=== PATIENT | female | born 1970 | race Caucasian/White ===

== ENCOUNTER 2023-04-14 21:00 | Inpatient (IN) | payer OTHER ==
[2023-04-14 22:26] VITALS: BMI 20.5
[2023-04-15] MEDS ORDERED: LOPERAMIDE HCL 2 MG CAPSULE PO PRN (03:03)
[2023-04-15] MEDS ORDERED: NALOXONE HCL 0.4 MG/ML VIAL IM PRN (03:03)
[2023-04-15] MEDS ORDERED: POLYETHYLENE GLYCOL (HEALTHYLAX) 3350 17 GM PACKET PO PRN (03:03)
[2023-04-15] MEDS ORDERED: MAGNESIUM HYDROX 2400MG/30ML ORAL SUSPENSION 30 ML CUP PO PRN (03:03)
[2023-04-15] MEDS ORDERED: guaiFENesin 600 MG TABLET.ER (FP) PO PRN (03:03)
[2023-04-15] MEDS ORDERED: IBUPROFEN 600 MG TABLET (FP) PO PRN (03:03)
[2023-04-15] MEDS ORDERED: NALOXONE HCL (KLOXXADO) 8 MG SPRAY NS PRN (03:03)
[2023-04-15] MEDS ORDERED: IBUPROFEN 400 MG TABLET (FP) PO PRN (03:03)
[2023-04-15] MEDS ORDERED: COLLOIDAL OATMEAL 1 BAR EACH TP PRN (03:03)
[2023-04-15] MEDS ORDERED: AMMONIUM LACTATE 12% LOTION 225 GM BOTTLE TP PRN (03:03)
[2023-04-15] MEDS ORDERED: BENZOCAINE/MENTHOL (CHLORASEPTIC ) LOZENGE MM PRN (03:03)
[2023-04-15] MEDS ORDERED: MAG HYDROX/AL HYDROX/SIMETH 30 ML UNIT-DOSE CUP PO PRN (03:03)
[2023-04-15] MEDS ORDERED: BENZONATATE 200 MG CAPSULE PO PRN (03:03)
[2023-04-15] MEDS ORDERED: TUBERCULIN PPD 5 TU/0.1ML SYRINGE (IN PATIENT USE ONLY) ID ONE (05:30)
[2023-04-15] MEDS ORDERED: TUBERCULIN PPD 5 TU/0.1ML VIAL ID ONE (05:31)
[2023-04-15] MEDS: ACETAMINOPHEN 325 MG TABLET (FP) PO PRN ×3 (05:36→16:37)
[2023-04-15] MEDS: hydrOXYzine PAMOATE 25 MG CAPSULE (FP) PO PRN ×2 (05:37→18:32)
[2023-04-15] MEDS: SULFAMETHOXAZOLE/TRIMETHOPRIM 800MG/160MG D.S. TABLET PO SCH ×2 (09:41→21:23)
[2023-04-15] MEDS: PRENATAL VITAMINS W/ FOLIC ACID TABLET (FP) PO SCH (09:41)
[2023-04-15] MEDS: NAPROXEN 500 MG TABLET PO SCH ×2 (09:41→21:23)
[2023-04-15 11:34] LABS: HEMOGLOBIN 9.4 GM/dL (10.7-15.3); MCH 34.5 pg (25.7-33.7); MCHC 33.6 g/dl (32.0-36.0); MEAN CELL VOLUME 102.7 fl (80-96); MEAN PLT VOLUME 7.5 fl (7.5-11.1); PLATELET COUNT 599 10^3/uL (134-434); RBC 2.73 M/mm3 (3.60-5.2); WHITE BLOOD COUNT 5.1 K/mm3 (4.0-10.0)
[2023-04-15 11:35] LABS: PH,URINE 6.5 (5.0-8.0); URINE APPEARANCE CLEAR; URINE BILIRUBIN NEGATIVE (NEGATIVE); URINE COLOR YELLOW; URINE GLUCOSE (UA) NEGATIVE (NEGATIVE); URINE KETONE NEGATIVE (NEGATIVE); URINE LEUK ESTERASE NEGATIVE (NEGATIVE); URINE NITRITE NEGATIVE (NEGATIVE); URINE PROTEIN NEGATIVE (NEGATIVE); URINE UROBILINOGEN 0.2 mg/dL (0.2-1.0)
[2023-04-15 13:06] LABS: SYPHILIS W/ RPR CONF NON-REACTIVE (NONREACTIVE)
[2023-04-15 13:11] LABS: POTASSIUM 4.8 mmol/L (3.5-5.1)
[2023-04-15 13:15] LABS: CALCIUM 9.9 mg/dL (8.5-10.1)
[2023-04-15 13:16] LABS: ALBUMIN 3.4 g/dl (3.4-5.0); BLOOD UREA NITROGEN 21.6 mg/dL (7-18)
[2023-04-15 13:19] LABS: CREATININE 0.8 mg/dL (0.55-1.3)
[2023-04-15 13:21] LABS: BILIRUBIN,TOTAL 0.2 mg/dL (0.2-1); TOT PROT 7.2 g/dl (6.4-8.2)
[2023-04-15 15:55] LABS: HIV INTERPRETATION NEGATIVE (NEGATIVE)
[2023-04-15] MEDS: MELATONIN 5 MG TABLETS PO SCH (21:23)
[2023-04-15] MEDS: THIAMINE HCL 100 MG TABLET (FP) PO SCH (21:23)
[2023-04-16] MEDS: PRENATAL VITAMINS W/ FOLIC ACID TABLET (FP) PO SCH (09:30)
[2023-04-16] MEDS: SULFAMETHOXAZOLE/TRIMETHOPRIM 800MG/160MG D.S. TABLET PO SCH ×2 (09:33→21:53)
[2023-04-16] MEDS: NAPROXEN 500 MG TABLET PO SCH ×2 (09:33→21:52)
[2023-04-16] MEDS: hydrOXYzine PAMOATE 25 MG CAPSULE (FP) PO PRN ×2 (09:34→21:52)
[2023-04-16] MEDS: BUPRENORPHINE/NALOXONE 8 MG/2 MG FILM PACKET SL SCH (12:07)
[2023-04-16] MEDS: ACAMPROSATE CALCIUM 333 MG TABLET.DR PO SCH ×2 (13:52→21:53)
[2023-04-16 15:15] LABS: MAGNESIUM 1.7 mg/dL (1.8-2.4)
[2023-04-16 15:21] LABS: INR 0.97 (0.83-1.09); PROTHROMBIN TIME (PATIENT) 11.3 SEC (9.7-13.0)
[2023-04-16 15:23] LABS: TOTAL IRON BINDING CAPACITY 445 ug/dL (250-450)
[2023-04-16] MEDS: NICOTINE 10 MG CARTRIDGE (INHALER) IH SCH (16:46)
[2023-04-16] MEDS: ACETAMINOPHEN 325 MG TABLET (FP) PO PRN (19:00)
[2023-04-16] MEDS: MELATONIN 5 MG TABLETS PO SCH (21:52)
[2023-04-16] MEDS: THIAMINE HCL 100 MG TABLET (FP) PO SCH (21:52)
[2023-04-17] MEDS: ACETAMINOPHEN 325 MG TABLET (FP) PO PRN ×2 (00:13→03:15)
[2023-04-17] MEDS: hydrOXYzine PAMOATE 25 MG CAPSULE (FP) PO PRN (03:15)
[2023-04-17] MEDS: ACAMPROSATE CALCIUM 333 MG TABLET.DR PO SCH ×3 (07:32→21:15)
[2023-04-17] MEDS: PRENATAL VITAMINS W/ FOLIC ACID TABLET (FP) PO SCH (10:09)
[2023-04-17] MEDS: SULFAMETHOXAZOLE/TRIMETHOPRIM 800MG/160MG D.S. TABLET PO SCH ×2 (10:09→21:14)
[2023-04-17] MEDS: NAPROXEN 500 MG TABLET PO SCH ×2 (10:09→21:14)
[2023-04-17] MEDS: NICOTINE 10 MG CARTRIDGE (INHALER) IH SCH (10:10)
[2023-04-17] MEDS: BUPRENORPHINE/NALOXONE 8 MG/2 MG FILM PACKET SL SCH (10:10)
[2023-04-17] MEDS: SERTRALINE HCL 25 MG TABLET (FP) PO SCH (10:44)
[2023-04-17] MEDS: MAGNESIUM OXIDE 400 MG TABLET (FP) PO SCH (12:47)
[2023-04-17] MEDS: LACTULOSE 20 GM/30 ML UDC (FOR ORAL USE ONLY) PO SCH ×2 (14:31→21:15)
[2023-04-17] MEDS: BUPRENORPHINE/NALOXONE 2 MG/0.5 MG FILM PACKET SL SCH (17:35)
[2023-04-17] MEDS: HYDROCORTISONE 0.5% TOPICAL CREAM 30 GM TUBE TP PRN (19:15)
[2023-04-17] MEDS: BENZOCAINE 20 % GEL TUBE MM PRN (19:18)
[2023-04-17] MEDS: THIAMINE HCL 100 MG TABLET (FP) PO SCH (21:14)
[2023-04-17] MEDS: MELATONIN 5 MG TABLETS PO SCH (21:15)
[2023-04-18] MEDS: hydrOXYzine PAMOATE 25 MG CAPSULE (FP) PO PRN (00:17)
[2023-04-18] MEDS: BENZOCAINE 20 % GEL TUBE MM PRN ×4 (00:18→22:04)
[2023-04-18] MEDS: LACTULOSE 20 GM/30 ML UDC (FOR ORAL USE ONLY) PO SCH ×2 (06:27→13:23)
[2023-04-18] MEDS: ACAMPROSATE CALCIUM 333 MG TABLET.DR PO SCH ×3 (06:28→21:17)
[2023-04-18] MEDS: NAPROXEN 500 MG TABLET PO PRN ×2 (06:31→21:18)
[2023-04-18] MEDS: HYDROCORTISONE 0.5% TOPICAL CREAM 30 GM TUBE TP PRN (07:15)
[2023-04-18] MEDS: MULTIVITAMINS (DAILY MVI) TABLET (FP) PO SCH (09:48)
[2023-04-18] MEDS: MAGNESIUM OXIDE 400 MG TABLET (FP) PO SCH (09:49)
[2023-04-18] MEDS: SERTRALINE HCL 25 MG TABLET (FP) PO SCH (09:49)
[2023-04-18] MEDS: SULFAMETHOXAZOLE/TRIMETHOPRIM 800MG/160MG D.S. TABLET PO SCH ×2 (09:49→21:17)
[2023-04-18] MEDS: CHOLECALCIFEROL (VIT D3) 400 UNIT (10 MCG) TABLET PO SCH (09:49)
[2023-04-18] MEDS: BUPRENORPHINE/NALOXONE 8 MG/2 MG FILM PACKET SL SCH (09:49)
[2023-04-18] MEDS: NICOTINE 10 MG CARTRIDGE (INHALER) IH SCH (09:50)
[2023-04-18] MEDS: BUPRENORPHINE/NALOXONE 2 MG/0.5 MG FILM PACKET SL SCH (17:57)
[2023-04-18] MEDS: NICOTINE POLACRILEX 2 MG GUM BUC PRN (19:01)
[2023-04-18] MEDS: THIAMINE HCL 100 MG TABLET (FP) PO SCH (21:17)
[2023-04-18] MEDS: MELATONIN 5 MG TABLETS PO SCH (21:17)
[2023-04-19] MEDS: ACAMPROSATE CALCIUM 333 MG TABLET.DR PO SCH ×3 (07:14→21:11)
[2023-04-19] MEDS: NICOTINE 10 MG CARTRIDGE (INHALER) IH SCH (09:29)
[2023-04-19] MEDS: SULFAMETHOXAZOLE/TRIMETHOPRIM 800MG/160MG D.S. TABLET PO SCH ×2 (09:29→21:10)
[2023-04-19] MEDS: MAGNESIUM OXIDE 400 MG TABLET (FP) PO SCH (09:30)
[2023-04-19] MEDS: BUPRENORPHINE/NALOXONE 8 MG/2 MG FILM PACKET SL SCH (09:30)
[2023-04-19] MEDS: MULTIVITAMINS (DAILY MVI) TABLET (FP) PO SCH (09:32)
[2023-04-19] MEDS: CHOLECALCIFEROL (VIT D3) 400 UNIT (10 MCG) TABLET PO SCH (09:32)
[2023-04-19] MEDS: SERTRALINE HCL 25 MG TABLET (FP) PO SCH (09:33)
[2023-04-19] MEDS: NAPROXEN 500 MG TABLET PO PRN ×2 (10:42→23:59)
[2023-04-19] MEDS ORDERED: FLU VACC QS2022-23(6MOS UP)/PF 60 MCG/0.5 ML SYRINGE IM ONE (12:00)
[2023-04-19] MEDS ORDERED: PNEUMOC 20-VAL CONJ-DIP CRM/PF 0.5 ML SYRINGE IM ONE (12:00)
[2023-04-19] MEDS: BENZOCAINE 20 % GEL TUBE MM PRN (16:32)
[2023-04-19] MEDS: BUPRENORPHINE/NALOXONE 2 MG/0.5 MG FILM PACKET SL SCH (18:30)
[2023-04-19] MEDS: THIAMINE HCL 100 MG TABLET (FP) PO SCH (21:10)
[2023-04-19] MEDS: MELATONIN 5 MG TABLETS PO SCH (21:10)
[2023-04-19] MEDS: NICOTINE POLACRILEX 2 MG GUM BUC PRN (21:31)
[2023-04-20] MEDS: ACAMPROSATE CALCIUM 333 MG TABLET.DR PO SCH ×3 (07:08→21:19)
[2023-04-20] MEDS: SULFAMETHOXAZOLE/TRIMETHOPRIM 800MG/160MG D.S. TABLET PO SCH ×2 (09:41→21:18)
[2023-04-20] MEDS: BUPRENORPHINE/NALOXONE 8 MG/2 MG FILM PACKET SL SCH (09:41)
[2023-04-20] MEDS: MAGNESIUM OXIDE 400 MG TABLET (FP) PO SCH (09:41)
[2023-04-20] MEDS: MULTIVITAMINS (DAILY MVI) TABLET (FP) PO SCH (09:45)
[2023-04-20] MEDS: SERTRALINE HCL 25 MG TABLET (FP) PO SCH (09:45)
[2023-04-20] MEDS: CHOLECALCIFEROL (VIT D3) 400 UNIT (10 MCG) TABLET PO SCH (09:45)
[2023-04-20] MEDS: NICOTINE 10 MG CARTRIDGE (INHALER) IH SCH (09:49)
[2023-04-20] MEDS: BUPRENORPHINE/NALOXONE 2 MG/0.5 MG FILM PACKET SL SCH (18:27)
[2023-04-20] MEDS: BENZOCAINE 20 % GEL TUBE MM PRN (18:29)
[2023-04-20] MEDS: MELATONIN 5 MG TABLETS PO SCH (21:18)
[2023-04-20] MEDS: THIAMINE HCL 100 MG TABLET (FP) PO SCH (21:18)
[2023-04-20] MEDS: IBUPROFEN 600 MG TABLET (FP) PO PRN (22:48)
[2023-04-21] MEDS: hydrOXYzine PAMOATE 25 MG CAPSULE (FP) PO PRN (06:39)
[2023-04-21] MEDS: IBUPROFEN 600 MG TABLET (FP) PO PRN ×3 (06:39→21:07)
[2023-04-21] MEDS: ACAMPROSATE CALCIUM 333 MG TABLET.DR PO SCH ×3 (06:40→21:08)
[2023-04-21] MEDS: SULFAMETHOXAZOLE/TRIMETHOPRIM 800MG/160MG D.S. TABLET PO SCH ×2 (10:10→21:07)
[2023-04-21] MEDS: MAGNESIUM OXIDE 400 MG TABLET (FP) PO SCH (10:10)
[2023-04-21] MEDS: BUPRENORPHINE/NALOXONE 8 MG/2 MG FILM PACKET SL SCH (10:11)
[2023-04-21] MEDS: NICOTINE 10 MG CARTRIDGE (INHALER) IH SCH (10:11)
[2023-04-21] MEDS: MULTIVITAMINS (DAILY MVI) TABLET (FP) PO SCH (10:11)
[2023-04-21] MEDS: CHOLECALCIFEROL (VIT D3) 400 UNIT (10 MCG) TABLET PO SCH (10:11)
[2023-04-21] MEDS: SERTRALINE HCL 25 MG TABLET (FP) PO SCH (10:12)
[2023-04-21] MEDS: BENZOCAINE 20 % GEL TUBE MM PRN ×3 (10:21→23:31)
[2023-04-21] MEDS: BUPRENORPHINE/NALOXONE 2 MG/0.5 MG FILM PACKET SL SCH (17:06)
[2023-04-21] MEDS: THIAMINE HCL 100 MG TABLET (FP) PO SCH (21:06)
[2023-04-21] MEDS: hydrOXYzine PAMOATE 50 MG CAPSULE (FP) PO PRN (21:07)
[2023-04-21] MEDS: MELATONIN 5 MG TABLETS PO SCH (21:10)
[2023-04-22] MEDS: hydrOXYzine PAMOATE 50 MG CAPSULE (FP) PO PRN ×2 (04:27→19:48)
[2023-04-22] MEDS: IBUPROFEN 600 MG TABLET (FP) PO PRN ×3 (04:27→21:47)
[2023-04-22] MEDS: BENZOCAINE 20 % GEL TUBE MM PRN ×3 (04:32→19:48)
[2023-04-22] MEDS: ACAMPROSATE CALCIUM 333 MG TABLET.DR PO SCH ×3 (06:53→21:45)
[2023-04-22] MEDS: MULTIVITAMINS (DAILY MVI) TABLET (FP) PO SCH (09:34)
[2023-04-22] MEDS: CHOLECALCIFEROL (VIT D3) 400 UNIT (10 MCG) TABLET PO SCH (09:34)
[2023-04-22] MEDS: SERTRALINE HCL 25 MG TABLET (FP) PO SCH (09:34)
[2023-04-22] MEDS: MAGNESIUM OXIDE 400 MG TABLET (FP) PO SCH (09:35)
[2023-04-22] MEDS: BUPRENORPHINE/NALOXONE 8 MG/2 MG FILM PACKET SL SCH (09:35)
[2023-04-22] MEDS: ARIPiprazole 2 MG TABLET PO SCH (09:36)
[2023-04-22] MEDS: NICOTINE 10 MG CARTRIDGE (INHALER) IH SCH (09:37)
[2023-04-22] MEDS: BUPRENORPHINE/NALOXONE 2 MG/0.5 MG FILM PACKET SL SCH (18:47)
[2023-04-22] MEDS: MELATONIN 5 MG TABLETS PO SCH (21:45)
[2023-04-22] MEDS: THIAMINE HCL 100 MG TABLET (FP) PO SCH (21:45)
[2023-04-23] MEDS: ACAMPROSATE CALCIUM 333 MG TABLET.DR PO SCH ×3 (07:05→21:33)
[2023-04-23] MEDS: IBUPROFEN 600 MG TABLET (FP) PO PRN (07:05)
[2023-04-23] MEDS: BENZOCAINE 20 % GEL TUBE MM PRN ×2 (07:56→21:36)
[2023-04-23] MEDS: MULTIVITAMINS (DAILY MVI) TABLET (FP) PO SCH (09:28)
[2023-04-23] MEDS: MAGNESIUM OXIDE 400 MG TABLET (FP) PO SCH (09:29)
[2023-04-23] MEDS: ARIPiprazole 2 MG TABLET PO SCH (09:29)
[2023-04-23] MEDS: CHOLECALCIFEROL (VIT D3) 400 UNIT (10 MCG) TABLET PO SCH (09:29)
[2023-04-23] MEDS: SERTRALINE HCL 25 MG TABLET (FP) PO SCH (09:29)
[2023-04-23] MEDS: BUPRENORPHINE/NALOXONE 8 MG/2 MG FILM PACKET SL SCH (09:30)
[2023-04-23] MEDS: NICOTINE 10 MG CARTRIDGE (INHALER) IH SCH (10:22)
[2023-04-23] MEDS: hydrOXYzine PAMOATE 50 MG CAPSULE (FP) PO PRN (11:12)
[2023-04-23] MEDS: LIDOCAINE 5% TOPICAL PATCH TP SCH (13:50)
[2023-04-23] MEDS: BUPRENORPHINE/NALOXONE 2 MG/0.5 MG FILM PACKET SL SCH (18:09)
[2023-04-23] MEDS: THIAMINE HCL 100 MG TABLET (FP) PO SCH (21:33)
[2023-04-23] MEDS: LIDOCAINE PATCH REMOVAL MC SCH (21:34)
[2023-04-23] MEDS: SUVOREXANT 10 MG TABLET PO PRN (21:35)
[2023-04-24] MEDS: ACAMPROSATE CALCIUM 333 MG TABLET.DR PO SCH ×3 (07:51→21:38)
[2023-04-24] MEDS: LIDOCAINE 5% TOPICAL PATCH TP SCH (09:54)
[2023-04-24] MEDS: MAGNESIUM OXIDE 400 MG TABLET (FP) PO SCH (09:56)
[2023-04-24] MEDS: ARIPiprazole 2 MG TABLET PO SCH (09:56)
[2023-04-24] MEDS: BUPRENORPHINE/NALOXONE 8 MG/2 MG FILM PACKET SL SCH (09:56)
[2023-04-24] MEDS: NICOTINE 10 MG CARTRIDGE (INHALER) IH SCH (09:57)
[2023-04-24] MEDS: CHOLECALCIFEROL (VIT D3) 400 UNIT (10 MCG) TABLET PO SCH (09:58)
[2023-04-24] MEDS: MULTIVITAMINS (DAILY MVI) TABLET (FP) PO SCH (09:58)
[2023-04-24] MEDS: SERTRALINE HCL 25 MG TABLET (FP) PO SCH (09:59)
[2023-04-24] MEDS: IBUPROFEN 600 MG TABLET (FP) PO PRN (10:01)
[2023-04-24] MEDS: BENZOCAINE 20 % GEL TUBE MM PRN ×2 (10:05→21:41)
[2023-04-24] MEDS: BUPRENORPHINE/NALOXONE 2 MG/0.5 MG FILM PACKET SL SCH (18:29)
[2023-04-24] MEDS: THIAMINE HCL 100 MG TABLET (FP) PO SCH (21:37)
[2023-04-24] MEDS: SUVOREXANT 10 MG TABLET PO PRN (21:37)
[2023-04-24] MEDS: LIDOCAINE PATCH REMOVAL MC SCH (21:37)
[2023-04-24] MEDS: hydrOXYzine PAMOATE 50 MG CAPSULE (FP) PO PRN (21:39)
[2023-04-25] MEDS: IBUPROFEN 600 MG TABLET (FP) PO PRN ×2 (00:55→19:20)
[2023-04-25] MEDS: ACAMPROSATE CALCIUM 333 MG TABLET.DR PO SCH ×3 (06:51→21:03)
[2023-04-25] MEDS ORDERED: SUVOREXANT 10 MG TABLET PO PRN (09:28)
[2023-04-25] MEDS: CHOLECALCIFEROL (VIT D3) 400 UNIT (10 MCG) TABLET PO SCH (10:06)
[2023-04-25] MEDS: MULTIVITAMINS (DAILY MVI) TABLET (FP) PO SCH (10:07)
[2023-04-25] MEDS: MAGNESIUM OXIDE 400 MG TABLET (FP) PO SCH (10:07)
[2023-04-25] MEDS: SERTRALINE HCL 25 MG TABLET (FP) PO SCH (10:07)
[2023-04-25] MEDS: ARIPiprazole 2 MG TABLET PO SCH (10:07)
[2023-04-25] MEDS: NICOTINE 10 MG CARTRIDGE (INHALER) IH SCH (10:08)
[2023-04-25] MEDS: LIDOCAINE 5% TOPICAL PATCH TP SCH (10:08)
[2023-04-25] MEDS: BUPRENORPHINE/NALOXONE 8 MG/2 MG FILM PACKET SL SCH (10:11)
[2023-04-25] MEDS: BENZOCAINE 20 % GEL TUBE MM PRN (10:11)
[2023-04-25] MEDS: BUPRENORPHINE/NALOXONE 2 MG/0.5 MG FILM PACKET SL SCH (18:17)
[2023-04-25] MEDS: THIAMINE HCL 100 MG TABLET (FP) PO SCH (21:03)
[2023-04-25] MEDS: LIDOCAINE PATCH REMOVAL MC SCH (21:43)
[2023-04-25] MEDS: hydrOXYzine PAMOATE 50 MG CAPSULE (FP) PO PRN (23:45)
[2023-04-26] MEDS: IBUPROFEN 600 MG TABLET (FP) PO PRN ×2 (03:25→23:41)
[2023-04-26] MEDS: ACAMPROSATE CALCIUM 333 MG TABLET.DR PO SCH ×3 (06:25→21:38)
[2023-04-26] MEDS: ARIPiprazole 2 MG TABLET PO SCH (09:55)
[2023-04-26] MEDS: SERTRALINE HCL 25 MG TABLET (FP) PO SCH (09:56)
[2023-04-26] MEDS: CHOLECALCIFEROL (VIT D3) 400 UNIT (10 MCG) TABLET PO SCH (09:56)
[2023-04-26] MEDS: MULTIVITAMINS (DAILY MVI) TABLET (FP) PO SCH (09:56)
[2023-04-26] MEDS: MAGNESIUM OXIDE 400 MG TABLET (FP) PO SCH (09:56)
[2023-04-26] MEDS: NICOTINE 10 MG CARTRIDGE (INHALER) IH SCH (09:57)
[2023-04-26] MEDS: LIDOCAINE 5% TOPICAL PATCH TP SCH (09:57)
[2023-04-26] MEDS: BUPRENORPHINE/NALOXONE 8 MG/2 MG FILM PACKET SL SCH (09:59)
[2023-04-26] MEDS: BUPRENORPHINE/NALOXONE 2 MG/0.5 MG FILM PACKET SL SCH (18:53)
[2023-04-26] MEDS: THIAMINE HCL 100 MG TABLET (FP) PO SCH (21:39)
[2023-04-26] MEDS: hydrOXYzine PAMOATE 50 MG CAPSULE (FP) PO PRN (21:50)
[2023-04-26] MEDS: LIDOCAINE PATCH REMOVAL MC SCH (21:53)
[2023-04-27] MEDS: IBUPROFEN 600 MG TABLET (FP) PO PRN ×3 (05:03→16:42)
[2023-04-27] MEDS: ACAMPROSATE CALCIUM 333 MG TABLET.DR PO SCH ×3 (06:48→21:39)
[2023-04-27] MEDS: LIDOCAINE 5% TOPICAL PATCH TP SCH (10:06)
[2023-04-27] MEDS: ARIPiprazole 2 MG TABLET PO SCH (10:07)
[2023-04-27] MEDS: CHOLECALCIFEROL (VIT D3) 400 UNIT (10 MCG) TABLET PO SCH (10:07)
[2023-04-27] MEDS: NICOTINE 10 MG CARTRIDGE (INHALER) IH SCH (10:07)
[2023-04-27] MEDS: MAGNESIUM OXIDE 400 MG TABLET (FP) PO SCH (10:07)
[2023-04-27] MEDS: MULTIVITAMINS (DAILY MVI) TABLET (FP) PO SCH (10:08)
[2023-04-27] MEDS: SERTRALINE HCL 25 MG TABLET (FP) PO SCH (10:08)
[2023-04-27] MEDS: BUPRENORPHINE/NALOXONE 8 MG/2 MG FILM PACKET SL SCH (10:12)
[2023-04-27] MEDS ORDERED: FUROSEMIDE 20 MG TABLET (FP) PO ONE (11:30)
[2023-04-27] MEDS: FUROSEMIDE 20 MG TABLET (FP) PO SCH (13:46)
[2023-04-27] MEDS ORDERED: FUROSEMIDE 20 MG TABLET (FP) PO SCH (14:00)
[2023-04-27] MEDS: LACTULOSE 20 GM/30 ML UDC (FOR ORAL USE ONLY) PO SCH ×2 (15:01→21:41)
[2023-04-27] MEDS: BUPRENORPHINE/NALOXONE 2 MG/0.5 MG FILM PACKET SL SCH (18:24)
[2023-04-27] MEDS: SUVOREXANT 15 MG TABLET PO PRN (21:38)
[2023-04-27] MEDS: THIAMINE HCL 100 MG TABLET (FP) PO SCH (21:39)
[2023-04-27] MEDS: LIDOCAINE PATCH REMOVAL MC SCH (21:42)
[2023-04-28] MEDS: LACTULOSE 20 GM/30 ML UDC (FOR ORAL USE ONLY) PO SCH ×3 (06:42→21:38)
[2023-04-28] MEDS: ACAMPROSATE CALCIUM 333 MG TABLET.DR PO SCH ×3 (06:43→21:42)
[2023-04-28] MEDS: FUROSEMIDE 20 MG TABLET (FP) PO SCH ×2 (06:46→14:24)
[2023-04-28] MEDS ORDERED: FUROSEMIDE 20 MG TABLET (FP) PO SCH (10:00)
[2023-04-28] MEDS: MAGNESIUM OXIDE 400 MG TABLET (FP) PO SCH (10:20)
[2023-04-28] MEDS: ARIPiprazole 2 MG TABLET PO SCH (10:20)
[2023-04-28] MEDS: LIDOCAINE 5% TOPICAL PATCH TP SCH (10:20)
[2023-04-28] MEDS: BUPRENORPHINE/NALOXONE 8 MG/2 MG FILM PACKET SL SCH (10:21)
[2023-04-28] MEDS: SERTRALINE HCL 25 MG TABLET (FP) PO SCH (10:21)
[2023-04-28] MEDS: CHOLECALCIFEROL (VIT D3) 400 UNIT (10 MCG) TABLET PO SCH (10:21)
[2023-04-28] MEDS: BENZOCAINE 20 % GEL TUBE MM PRN (10:22)
[2023-04-28] MEDS: MULTIVITAMINS (DAILY MVI) TABLET (FP) PO SCH (10:22)
[2023-04-28] MEDS: NICOTINE 10 MG CARTRIDGE (INHALER) IH SCH (10:23)
[2023-04-28] MEDS: METHYL SALICYLATE/MENTHOL OINT 30 GM TUBE TP SCH ×2 (14:17→21:48)
[2023-04-28] MEDS: IBUPROFEN 600 MG TABLET (FP) PO PRN ×2 (14:42→21:42)
[2023-04-28] MEDS: BUPRENORPHINE/NALOXONE 4 MG/1 MG FILM PACKET SL SCH (17:47)
[2023-04-28] MEDS: THIAMINE HCL 100 MG TABLET (FP) PO SCH (21:43)
[2023-04-28] MEDS: SUVOREXANT 15 MG TABLET PO PRN (21:43)
[2023-04-28] MEDS: LIDOCAINE PATCH REMOVAL MC SCH (21:45)
[2023-04-28] MEDS: hydrOXYzine PAMOATE 50 MG CAPSULE (FP) PO PRN (23:38)
[2023-04-29] MEDS: IBUPROFEN 600 MG TABLET (FP) PO PRN ×4 (04:38→23:05)
[2023-04-29] MEDS: LACTULOSE 20 GM/30 ML UDC (FOR ORAL USE ONLY) PO SCH ×3 (06:33→21:56)
[2023-04-29] MEDS: ACAMPROSATE CALCIUM 333 MG TABLET.DR PO SCH ×3 (06:33→21:08)
[2023-04-29] MEDS: FUROSEMIDE 20 MG TABLET (FP) PO SCH ×2 (06:36→14:41)
[2023-04-29] MEDS: ARIPiprazole 2 MG TABLET PO SCH (10:19)
[2023-04-29] MEDS: CHOLECALCIFEROL (VIT D3) 400 UNIT (10 MCG) TABLET PO SCH (10:19)
[2023-04-29] MEDS: BUPRENORPHINE/NALOXONE 8 MG/2 MG FILM PACKET SL SCH (10:19)
[2023-04-29] MEDS: MAGNESIUM OXIDE 400 MG TABLET (FP) PO SCH (10:19)
[2023-04-29] MEDS: MULTIVITAMINS (DAILY MVI) TABLET (FP) PO SCH (10:19)
[2023-04-29] MEDS: SERTRALINE HCL 25 MG TABLET (FP) PO SCH (10:20)
[2023-04-29] MEDS: LIDOCAINE 5% TOPICAL PATCH TP SCH (10:20)
[2023-04-29] MEDS: NICOTINE 10 MG CARTRIDGE (INHALER) IH SCH (10:20)
[2023-04-29] MEDS: METHYL SALICYLATE/MENTHOL OINT 30 GM TUBE TP SCH ×2 (10:22→21:08)
[2023-04-29] MEDS: BUPRENORPHINE/NALOXONE 4 MG/1 MG FILM PACKET SL SCH (17:29)
[2023-04-29] MEDS: SUVOREXANT 15 MG TABLET PO PRN (21:08)
[2023-04-29] MEDS: THIAMINE HCL 100 MG TABLET (FP) PO SCH (21:08)
[2023-04-29] MEDS: LIDOCAINE PATCH REMOVAL MC SCH (21:09)
[2023-04-30] MEDS: IBUPROFEN 600 MG TABLET (FP) PO PRN ×2 (05:15→16:50)
[2023-04-30] MEDS: ACAMPROSATE CALCIUM 333 MG TABLET.DR PO SCH ×3 (06:20→21:28)
[2023-04-30] MEDS: LACTULOSE 20 GM/30 ML UDC (FOR ORAL USE ONLY) PO SCH ×3 (06:21→21:28)
[2023-04-30] MEDS: FUROSEMIDE 20 MG TABLET (FP) PO SCH ×2 (06:23→15:24)
[2023-04-30] MEDS: METHYL SALICYLATE/MENTHOL OINT 30 GM TUBE TP SCH ×2 (10:25→21:29)
[2023-04-30] MEDS: MAGNESIUM OXIDE 400 MG TABLET (FP) PO SCH (10:25)
[2023-04-30] MEDS: ARIPiprazole 2 MG TABLET PO SCH (10:25)
[2023-04-30] MEDS: LIDOCAINE 5% TOPICAL PATCH TP SCH (10:26)
[2023-04-30] MEDS: BUPRENORPHINE/NALOXONE 8 MG/2 MG FILM PACKET SL SCH (10:26)
[2023-04-30] MEDS: NICOTINE 10 MG CARTRIDGE (INHALER) IH SCH (10:27)
[2023-04-30] MEDS: MULTIVITAMINS (DAILY MVI) TABLET (FP) PO SCH (10:27)
[2023-04-30] MEDS: SERTRALINE HCL 25 MG TABLET (FP) PO SCH (10:28)
[2023-04-30] MEDS: CHOLECALCIFEROL (VIT D3) 400 UNIT (10 MCG) TABLET PO SCH (10:28)
[2023-04-30] MEDS: hydrOXYzine PAMOATE 50 MG CAPSULE (FP) PO PRN ×2 (10:32→16:53)
[2023-04-30] MEDS: BUPRENORPHINE/NALOXONE 4 MG/1 MG FILM PACKET SL SCH (17:22)
[2023-04-30] MEDS: THIAMINE HCL 100 MG TABLET (FP) PO SCH (21:28)
[2023-04-30] MEDS: LIDOCAINE PATCH REMOVAL MC SCH (21:29)
[2023-04-30] MEDS: SUVOREXANT 10 MG TABLET PO SCH (21:33)
[2023-05-01] MEDS: IBUPROFEN 600 MG TABLET (FP) PO PRN ×3 (01:33→17:28)
[2023-05-01] MEDS: ACAMPROSATE CALCIUM 333 MG TABLET.DR PO SCH ×3 (06:24→21:11)
[2023-05-01] MEDS: LACTULOSE 20 GM/30 ML UDC (FOR ORAL USE ONLY) PO SCH ×3 (06:24→21:11)
[2023-05-01] MEDS: FUROSEMIDE 20 MG TABLET (FP) PO SCH ×2 (06:25→14:40)
[2023-05-01] MEDS: BUPRENORPHINE/NALOXONE 8 MG/2 MG FILM PACKET SL SCH (09:29)
[2023-05-01] MEDS: MULTIVITAMINS (DAILY MVI) TABLET (FP) PO SCH (09:31)
[2023-05-01] MEDS: MAGNESIUM OXIDE 400 MG TABLET (FP) PO SCH (09:31)
[2023-05-01] MEDS: CHOLECALCIFEROL (VIT D3) 400 UNIT (10 MCG) TABLET PO SCH (09:31)
[2023-05-01] MEDS: SERTRALINE HCL 25 MG TABLET (FP) PO SCH (09:32)
[2023-05-01] MEDS: ARIPiprazole 2 MG TABLET PO SCH (09:32)
[2023-05-01] MEDS: NICOTINE 10 MG CARTRIDGE (INHALER) IH SCH (09:33)
[2023-05-01] MEDS: LIDOCAINE 5% TOPICAL PATCH TP SCH (09:35)
[2023-05-01] MEDS: METHYL SALICYLATE/MENTHOL OINT 30 GM TUBE TP SCH ×2 (09:35→21:13)
[2023-05-01] MEDS: NICOTINE POLACRILEX 2 MG GUM BUC PRN (10:42)
[2023-05-01] MEDS: hydrOXYzine PAMOATE 50 MG CAPSULE (FP) PO PRN (17:02)
[2023-05-01] MEDS: BUPRENORPHINE/NALOXONE 4 MG/1 MG FILM PACKET SL SCH (17:33)
[2023-05-01] MEDS: THIAMINE HCL 100 MG TABLET (FP) PO SCH (21:12)
[2023-05-01] MEDS: SUVOREXANT 10 MG TABLET PO SCH (21:13)
[2023-05-01] MEDS: LIDOCAINE PATCH REMOVAL MC SCH (21:15)
[2023-05-02] MEDS: LACTULOSE 20 GM/30 ML UDC (FOR ORAL USE ONLY) PO SCH ×3 (06:17→21:12)
[2023-05-02] MEDS: ACAMPROSATE CALCIUM 333 MG TABLET.DR PO SCH ×3 (06:18→21:13)
[2023-05-02] MEDS: IBUPROFEN 600 MG TABLET (FP) PO PRN ×2 (06:19→18:41)
[2023-05-02] MEDS: FUROSEMIDE 20 MG TABLET (FP) PO SCH ×2 (06:20→14:43)
[2023-05-02] MEDS: MAGNESIUM OXIDE 400 MG TABLET (FP) PO SCH (09:14)
[2023-05-02] MEDS: BUPRENORPHINE/NALOXONE 8 MG/2 MG FILM PACKET SL SCH (09:15)
[2023-05-02] MEDS: NICOTINE 10 MG CARTRIDGE (INHALER) IH SCH (09:15)
[2023-05-02] MEDS: METHYL SALICYLATE/MENTHOL OINT 30 GM TUBE TP SCH ×2 (09:15→21:13)
[2023-05-02] MEDS: LIDOCAINE 5% TOPICAL PATCH TP SCH (09:16)
[2023-05-02] MEDS: ARIPiprazole 2 MG TABLET PO SCH (09:17)
[2023-05-02] MEDS: MULTIVITAMINS (DAILY MVI) TABLET (FP) PO SCH (09:18)
[2023-05-02] MEDS: CHOLECALCIFEROL (VIT D3) 400 UNIT (10 MCG) TABLET PO SCH (09:18)
[2023-05-02] MEDS: SERTRALINE HCL 25 MG TABLET (FP) PO SCH (09:19)
[2023-05-02] MEDS: hydrOXYzine PAMOATE 50 MG CAPSULE (FP) PO PRN (18:41)
[2023-05-02] MEDS: BUPRENORPHINE/NALOXONE 4 MG/1 MG FILM PACKET SL SCH (18:41)
[2023-05-02] MEDS: SUVOREXANT 10 MG TABLET PO SCH (21:13)
[2023-05-02] MEDS: THIAMINE HCL 100 MG TABLET (FP) PO SCH (21:13)
[2023-05-02] MEDS: LIDOCAINE PATCH REMOVAL MC SCH (21:13)
[2023-05-03] MEDS: ACAMPROSATE CALCIUM 333 MG TABLET.DR PO SCH ×3 (06:21→21:11)
[2023-05-03] MEDS: LACTULOSE 20 GM/30 ML UDC (FOR ORAL USE ONLY) PO SCH ×3 (06:21→21:10)
[2023-05-03] MEDS: FUROSEMIDE 20 MG TABLET (FP) PO SCH ×2 (06:22→14:15)
[2023-05-03] MEDS: MAGNESIUM OXIDE 400 MG TABLET (FP) PO SCH (10:24)
[2023-05-03] MEDS: BUPRENORPHINE/NALOXONE 8 MG/2 MG FILM PACKET SL SCH (10:24)
[2023-05-03] MEDS: ARIPiprazole 2 MG TABLET PO SCH (10:25)
[2023-05-03] MEDS: CHOLECALCIFEROL (VIT D3) 400 UNIT (10 MCG) TABLET PO SCH (10:25)
[2023-05-03] MEDS: MULTIVITAMINS (DAILY MVI) TABLET (FP) PO SCH (10:25)
[2023-05-03] MEDS: NICOTINE 10 MG CARTRIDGE (INHALER) IH SCH (10:26)
[2023-05-03] MEDS: METHYL SALICYLATE/MENTHOL OINT 30 GM TUBE TP SCH ×2 (10:26→21:15)
[2023-05-03] MEDS: LIDOCAINE 5% TOPICAL PATCH TP SCH (10:26)
[2023-05-03] MEDS: SERTRALINE HCL 25 MG TABLET (FP) PO SCH (10:26)
[2023-05-03] MEDS: hydrOXYzine PAMOATE 50 MG CAPSULE (FP) PO PRN ×2 (10:28→21:12)
[2023-05-03] MEDS: BUPRENORPHINE/NALOXONE 4 MG/1 MG FILM PACKET SL SCH (17:55)
[2023-05-03] MEDS: NICOTINE POLACRILEX 2 MG GUM BUC PRN (17:56)
[2023-05-03] MEDS: BENZOCAINE 20 % GEL TUBE MM PRN (18:29)
[2023-05-03] MEDS: THIAMINE HCL 100 MG TABLET (FP) PO SCH (21:12)
[2023-05-03] MEDS: SUVOREXANT 10 MG TABLET PO SCH (21:14)
[2023-05-03] MEDS: LIDOCAINE PATCH REMOVAL MC SCH (21:16)
[2023-05-03] MEDS: IBUPROFEN 600 MG TABLET (FP) PO PRN (23:06)
[2023-05-04] MEDS: ACAMPROSATE CALCIUM 333 MG TABLET.DR PO SCH ×3 (06:35→21:58)
[2023-05-04] MEDS: LACTULOSE 20 GM/30 ML UDC (FOR ORAL USE ONLY) PO SCH ×3 (06:35→21:57)
[2023-05-04] MEDS: FUROSEMIDE 20 MG TABLET (FP) PO SCH ×2 (06:36→14:25)
[2023-05-04] MEDS: MAGNESIUM OXIDE 400 MG TABLET (FP) PO SCH (10:07)
[2023-05-04] MEDS: BUPRENORPHINE/NALOXONE 8 MG/2 MG FILM PACKET SL SCH (10:07)
[2023-05-04] MEDS: CHOLECALCIFEROL (VIT D3) 400 UNIT (10 MCG) TABLET PO SCH (10:08)
[2023-05-04] MEDS: ARIPiprazole 2 MG TABLET PO SCH (10:08)
[2023-05-04] MEDS: SERTRALINE HCL 25 MG TABLET (FP) PO SCH (10:08)
[2023-05-04] MEDS: METHYL SALICYLATE/MENTHOL OINT 30 GM TUBE TP SCH ×2 (10:12→22:03)
[2023-05-04] MEDS: MULTIVITAMINS (DAILY MVI) TABLET (FP) PO SCH (10:13)
[2023-05-04] MEDS: NICOTINE 10 MG CARTRIDGE (INHALER) IH SCH (10:29)
[2023-05-04] MEDS: LIDOCAINE 5% TOPICAL PATCH TP SCH (10:30)
[2023-05-04] MEDS: BUPRENORPHINE/NALOXONE 4 MG/1 MG FILM PACKET SL SCH (18:17)
[2023-05-04] MEDS: THIAMINE HCL 100 MG TABLET (FP) PO SCH (21:58)
[2023-05-04] MEDS: SUVOREXANT 10 MG TABLET PO SCH (21:59)
[2023-05-04] MEDS: hydrOXYzine PAMOATE 50 MG CAPSULE (FP) PO PRN (22:00)
[2023-05-04] MEDS: LIDOCAINE PATCH REMOVAL MC SCH (22:00)
[2023-05-04] MEDS: IBUPROFEN 600 MG TABLET (FP) PO PRN (22:02)
[2023-05-05] MEDS: LACTULOSE 20 GM/30 ML UDC (FOR ORAL USE ONLY) PO SCH ×3 (06:48→21:12)
[2023-05-05] MEDS: ACAMPROSATE CALCIUM 333 MG TABLET.DR PO SCH ×3 (06:48→21:11)
[2023-05-05] MEDS: IBUPROFEN 600 MG TABLET (FP) PO PRN (06:49)
[2023-05-05] MEDS: hydrOXYzine PAMOATE 50 MG CAPSULE (FP) PO PRN ×2 (06:49→13:28)
[2023-05-05] MEDS: FUROSEMIDE 20 MG TABLET (FP) PO SCH ×2 (06:51→13:30)
[2023-05-05] MEDS: LIDOCAINE 5% TOPICAL PATCH TP SCH (09:30)
[2023-05-05] MEDS: MULTIVITAMINS (DAILY MVI) TABLET (FP) PO SCH (09:30)
[2023-05-05] MEDS: MAGNESIUM OXIDE 400 MG TABLET (FP) PO SCH (09:30)
[2023-05-05] MEDS: SERTRALINE HCL 25 MG TABLET (FP) PO SCH (09:30)
[2023-05-05] MEDS: CHOLECALCIFEROL (VIT D3) 400 UNIT (10 MCG) TABLET PO SCH (09:30)
[2023-05-05] MEDS: ARIPiprazole 2 MG TABLET PO SCH (09:31)
[2023-05-05] MEDS: METHYL SALICYLATE/MENTHOL OINT 30 GM TUBE TP SCH ×2 (09:31→21:13)
[2023-05-05] MEDS: BUPRENORPHINE/NALOXONE 8 MG/2 MG FILM PACKET SL SCH (09:31)
[2023-05-05] MEDS: NICOTINE 10 MG CARTRIDGE (INHALER) IH SCH (10:59)
[2023-05-05] MEDS: BUPRENORPHINE/NALOXONE 4 MG/1 MG FILM PACKET SL SCH (17:16)
[2023-05-05] MEDS: THIAMINE HCL 100 MG TABLET (FP) PO SCH (21:11)
[2023-05-05] MEDS: LIDOCAINE PATCH REMOVAL MC SCH (21:12)
[2023-05-05] MEDS ORDERED: SUVOREXANT 15 MG TABLET PO SCH (22:00)
[2023-05-05] MEDS: RIFAXIMIN 550 MG TABLET PO SCH ×2 (22:16)
[2023-05-05] MEDS: BENZOCAINE 20 % GEL TUBE MM PRN (22:57)
[2023-05-06] MEDS: IBUPROFEN 600 MG TABLET (FP) PO PRN (01:24)
[2023-05-06] MEDS: hydrOXYzine PAMOATE 50 MG CAPSULE (FP) PO PRN (01:24)
[2023-05-06] MEDS: LACTULOSE 20 GM/30 ML UDC (FOR ORAL USE ONLY) PO SCH ×2 (06:28→13:49)
[2023-05-06] MEDS: ACAMPROSATE CALCIUM 333 MG TABLET.DR PO SCH ×2 (06:28→13:48)
[2023-05-06] MEDS: FUROSEMIDE 20 MG TABLET (FP) PO SCH ×2 (06:28→13:49)
[2023-05-06 08:24] VITALS: RESP 18; TEMP 97.3
[2023-05-06] MEDS: MAGNESIUM OXIDE 400 MG TABLET (FP) PO SCH (09:45)
[2023-05-06] MEDS: MULTIVITAMINS (DAILY MVI) TABLET (FP) PO SCH (09:45)
[2023-05-06] MEDS: RIFAXIMIN 550 MG TABLET PO SCH (09:46)
[2023-05-06] MEDS: BUPRENORPHINE/NALOXONE 8 MG/2 MG FILM PACKET SL SCH (09:47)
[2023-05-06] MEDS ORDERED: ARIPiprazole 5 MG TABLET PO SCH (10:00)
[2023-05-06 10:14] VITALS: BP 115/63; PULSE 96
[2023-05-06] MEDS: NICOTINE 10 MG CARTRIDGE (INHALER) IH SCH (10:14)
[2023-05-06] MEDS: SERTRALINE HCL 25 MG TABLET (FP) PO SCH (10:14)
[2023-05-06] MEDS: CHOLECALCIFEROL (VIT D3) 400 UNIT (10 MCG) TABLET PO SCH ×2 (10:14→10:59)
[2023-05-06] MEDS: METHYL SALICYLATE/MENTHOL OINT 30 GM TUBE TP SCH (10:14)
[2023-05-06] MEDS: LIDOCAINE 5% TOPICAL PATCH TP SCH (10:14)
== END 2023-05-06 14:33 | disposition home or self-care (01) | DRG 772 ==
LOC: YASAS 21:00 → Y5N 04-15 04:37
PROVIDERS: ADMIT Allergy & Immunology; ATTEND Psychiatry & Neurology Pain Medicine
PROC: HZ42ZZZ Group Counseling for Substance Abuse Treatment, Cognitive-Behavioral (ICD-10-PCS; principal; 2023-04-15)
DX: F10.20 Alcohol dependence, uncomplicated (principal); F11.20 Opioid dependence, uncomplicated; F17.210 Nicotine dependence, cigarettes, uncomplicated; F41.9 Anxiety disorder, unspecified; F32.A Depression, unspecified; E72.20 Disorder of urea cycle metabolism, unspecified; E55.9 Vitamin D deficiency, unspecified; E83.42 Hypomagnesemia; G47.00 Insomnia, unspecified; L02.413 Cutaneous abscess of right upper limb; M54.50 Low back pain, unspecified; G89.29 Other chronic pain; S52.502K Unspecified fracture of the lower end of left radius, subsequent encounter for closed fracture with nonunion; W19.XXXD Unspecified fall, subsequent encounter; K08.89 Other specified disorders of teeth and supporting structures; Z88.0 Allergy status to penicillin; Z28.310 Unvaccinated for COVID-19; Z28.9 Immunization not carried out for unspecified reason
CPT/HCPCS: 36415; 73090-TC-LT-FY; 73110-TC-LT-FY; 73130-TC-LT-FY; 80053; 81003; 81025; 82140; 82306; 82607; 82728; 82746; 83550; 83735; 85027; 85610; 86780; 86803; 87389; 87635; 90677; 93005; 93010; G0008; Q2036

== ENCOUNTER 2023-04-15 00:54 | Emergency (ER) | payer OTHER ==
[2023-04-15 01:16] VITALS: BP 105/71; PULSE 98; RESP 18; TEMP 98.1; BMI 20.5
[2023-04-15] MEDS ORDERED: SULFAMETHOXAZOLE/TRIMETHOPRIM 800MG/160MG D.S. TABLET PO ONE (01:48)
[2023-04-15] MEDS ORDERED: NAPROXEN 500 MG TABLET PO ONE (01:49)
[2023-04-15] MEDS ORDERED: NAPROXEN 500 MG TABLET ONE (01:56)
[2023-04-15] MEDS ORDERED: SULFAMETHOXAZOLE/TRIMETHOPRIM 800MG/160MG D.S. TABLET ONE (01:56)
== END 2023-04-15 02:59 | disposition home or self-care (01) ==
LOC: JER 00:54
DX: R22.31 Localized swelling, mass and lump, right upper limb (principal); F19.20 Other psychoactive substance dependence, uncomplicated; L02.413 Cutaneous abscess of right upper limb; S62.102K Fracture of unspecified carpal bone, left wrist, subsequent encounter for fracture with nonunion; X58.XXXD Exposure to other specified factors, subsequent encounter
CPT/HCPCS: 73110-TC-LT-FY; 99283-25

== ENCOUNTER 2024-05-05 22:50 | Observation (INO) | payer OTHER ==
[2024-05-05 23:26] VITALS: BMI 22.3
[2024-05-06 00:29] LABS: HEMATOCRIT 27.4 % (32.4-45.2); HEMOGLOBIN 9.4 GM/dL (10.7-15.3); MCH 35.8 pg (25.7-33.7); MCHC 34.3 g/dl (32.0-36.0); MEAN CELL VOLUME 104.4 fl (80-96); MEAN PLT VOLUME 7.5 fl (7.5-11.1); PLATELET COUNT 107 10^3/uL (134-434); RBC 2.62 M/mm3 (3.60-5.2); RDW 13.8 % (11.6-15.6); WHITE BLOOD COUNT 2.7 K/mm3 (4.0-10.0)
[2024-05-06] MEDS ORDERED: FAMOTIDINE 20 MG/50 ML IVPB 20 MG/50 ML MG IVPB ONE (00:32)
[2024-05-06] MEDS: SODIUM CHLORIDE 0.9% 500 ML INFUS.BAG IV ONE (00:37)
[2024-05-06] MEDS: FAMOTIDINE 20 MG/50 ML IVPB 20 MG/50 ML MG IVPB ONE (00:37)
[2024-05-06 00:47] LABS: BASO % 0.6 % (0-2.0); EOS % 14.7 % (0-4.5); LYMPH % 29.4 % (8-40); MONO % 13.3 % (3.8-10.2)
[2024-05-06 00:56] LABS: CHLORIDE 107 mmol/L (98-107); SODIUM 145 mmol/L (136-145)
[2024-05-06 01:00] LABS: CALCIUM 7.2 mg/dL (8.5-10.1)
[2024-05-06 01:01] LABS: ALBUMIN 2.5 g/dl (3.4-5.0); BLOOD UREA NITROGEN 6.4 mg/dL (7-18); CO2 29 mmol/L (21-32); GLUCOSE,RANDOM 79 mg/dL (74-106); MAGNESIUM 1.7 mg/dL (1.8-2.4)
[2024-05-06 01:03] LABS: CREATININE 0.5 mg/dL (0.55-1.3)
[2024-05-06 01:04] LABS: SGOT/AST 147 U/L (15-37); SGPT/ALT 56 U/L (13-61)
[2024-05-06 01:05] LABS: BILIRUBIN,TOTAL 0.2 mg/dL (0.2-1); TOT PROT 6.4 g/dl (6.4-8.2)
[2024-05-06 01:06] LABS: ALK PHOS 128 U/L (45-117)
[2024-05-06 01:09] LABS: N-TERMINAL BNP 36.5 pg/ml (5-125)
[2024-05-06 01:12] LABS: INR 1.66 (0.83-1.09); PROTHROMBIN TIME (PATIENT) 18.8 SEC (9.7-13.0)
[2024-05-06 01:20] LABS: ANION GAP 9 mmol/L (4-13); POTASSIUM 2.9 mmol/L (3.5-5.1)
[2024-05-06] MEDS: MAGNESIUM SULF 50% (8.12 MEQ/2 ML-1 GM VIAL) IVPB ONE ×2 (01:29→12:28)
[2024-05-06] MEDS ORDERED: POTASSIUM CHLORIDE ORAL LIQUID 20 MEQ/15 ML ONE ×3 (01:31→12:02)
[2024-05-06] MEDS: POTASSIUM CHLORIDE ORAL LIQUID 20 MEQ/15 ML PO ONE ×3 (01:34→18:36)
[2024-05-06 01:54] LABS: ACTIVATED PTT 29.4 SECONDS (25.2-36.5)
[2024-05-06] MEDS: FOLIC ACID INJECTION - 1 MG, THIAMINE HCL 100 MG, MULTIVIT INJECTION ADULT 10 ML in SOD... IVPB ONE (02:52)
[2024-05-06 03:10] LABS: ANISOCYTOSIS 1+; MACROCYTOSIS 0; ROULEAU 1+; TARGET CELLS 1+
[2024-05-06] MEDS ORDERED: ENOXAPARIN NA (PORCINE) 40 MG/0.4 ML DISP.SYRIN SQ ONE (11:57)
[2024-05-06] MEDS ORDERED: MAGNESIUM SULFATE IN WATER 2 GM/50 ML IVPB IVPB ONE (11:57)
[2024-05-06] MEDS: ENOXAPARIN NA (PORCINE) 40 MG/0.4 ML DISP.SYRIN SQ SCH (12:27)
[2024-05-06 12:41] LABS: ANION GAP 7 mmol/L (4-13); BLOOD UREA NITROGEN 4.2 mg/dL (7-18); CALCIUM 6.9 mg/dL (8.5-10.1); CHLORIDE 108 mmol/L (98-107); CO2 29 mmol/L (21-32); CREATININE 0.5 mg/dL (0.55-1.3); GLUCOSE,RANDOM 88 mg/dL (74-106); POTASSIUM 3.4 mmol/L (3.5-5.1); SODIUM 145 mmol/L (136-145)
[2024-05-06] MEDS: PERMETHRIN (NIX CREAM SCALP RINSE) 59 ML 1% BOTTLE TP ONE ×2 (14:09→18:22)
[2024-05-06] MEDS: THIAMINE HCL 200 MG/2 ML VIAL IVPB ONE (14:24)
[2024-05-06] MEDS: diphenhydrAMINE HCL 25 MG CAPSULE (FP) PO ONE (21:42)
[2024-05-06] MEDS: CALAMINE 8% TOPICAL LOTION 177 ML BOTTLE TP PRN (23:56)
[2024-05-06] MEDS: diphenhydrAMINE HCL 25 MG CAPSULE (FP) PO PRN (23:56)
[2024-05-07 09:03] LABS: BASO % 0.4 % (0-2.0); EOS % 13.1 % (0-4.5); HEMATOCRIT 30.4 % (32.4-45.2); HEMOGLOBIN 10.2 GM/dL (10.7-15.3); LYMPH % 26.3 % (8-40); MCH 35.5 pg (25.7-33.7); MCHC 33.6 g/dl (32.0-36.0); MEAN CELL VOLUME 105.6 fl (80-96); MEAN PLT VOLUME 7.3 fl (7.5-11.1); MONO % 12.2 % (3.8-10.2); PLATELET COUNT 122 10^3/uL (134-434); RBC 2.88 M/mm3 (3.60-5.2); RDW 13.8 % (11.6-15.6); WHITE BLOOD COUNT 3.9 K/mm3 (4.0-10.0)
[2024-05-07 09:24] LABS: CHLORIDE 104 mmol/L (98-107); POTASSIUM 3.8 mmol/L (3.5-5.1); SODIUM 140 mmol/L (136-145)
[2024-05-07 09:31] LABS: ALBUMIN 2.4 g/dl (3.4-5.0); ANION GAP 9 mmol/L (4-13); ANISOCYTOSIS 2+; CO2 28 mmol/L (21-32); GLUCOSE,RANDOM 118 mg/dL (74-106); MACROCYTOSIS 2+; MAGNESIUM 1.5 mg/dL (1.8-2.4)
[2024-05-07 09:32] LABS: PHOSPHOROUS 2.4 mg/dL (2.5-4.9); SGPT/ALT 49 U/L (13-61)
[2024-05-07 09:34] LABS: BILIRUBIN,TOTAL 0.4 mg/dL (0.2-1); CREATININE 0.5 mg/dL (0.55-1.3); TOT PROT 6.3 g/dl (6.4-8.2)
[2024-05-07 09:35] LABS: ALK PHOS 135 U/L (45-117); SGOT/AST 130 U/L (15-37)
[2024-05-07 09:57] LABS: CALCIUM 6.9 mg/dL (8.5-10.1)
[2024-05-07] MEDS: THIAMINE 100 MG TABLET PO SCH (10:39)
[2024-05-07] MEDS: FOLIC ACID 1 MG TABLET (FP) PO SCH (10:39)
[2024-05-07] MEDS: ACETAMINOPHEN 325 MG TABLET (FP) PO PRN (10:40)
[2024-05-07] MEDS: MAGNESIUM SULFATE IN WATER 2 GM/50 ML IVPB IVPB ONE (10:58)
[2024-05-07] MEDS: NAPH,MB-DB/K PH,MBDB POWDER PACKET PO SCH (10:58)
[2024-05-07] MEDS ORDERED: PERMETHRIN (NIX CREAM SCALP RINSE) 59 ML 1% BOTTLE TP ONE (11:35)
[2024-05-07] MEDS: CALCIUM GLUC IN NACL, ISO-OSM 1 GM/50 ML BAG IVPB ONE (15:01)
[2024-05-07] MEDS: CALCIUM 500MG/VIT-D 200 UNITS COMBO TABLET (FP) PO SCH (15:02)
[2024-05-07] MEDS: PERMETHRIN (NIX CREAM SCALP RINSE) 59 ML 1% BOTTLE TP PRN (17:50)
[2024-05-07] MEDS: IVERMECTIN 3 MG TABLET PO ONE (21:33)
[2024-05-08] MEDS: AMMONIUM LACTATE 12% LOTION 225 GM BOTTLE TP SCH (12:19)
[2024-05-08] MEDS: diphenhydrAMINE HCL 25 MG CAPSULE (FP) PO PRN (21:02)
[2024-05-09 06:28] VITALS: BP 113/79; PULSE 107; RESP 16; TEMP 98
[2024-05-09] MEDS: KETOROLAC TROMETHAMINE 30 MG/1 ML VIAL IVPUSH ONE (09:42)
== END 2024-05-09 16:13 | disposition home or self-care (01) ==
LOC: JER 22:50 → JERBED 05-06 08:59 → J4S 05-06 16:28
PROVIDERS: ADMIT Internal Medicine; ATTEND Nurse Practitioner
PROC: 3E0337Z Introduction of Electrolytic and Water Balance Substance into Peripheral Vein, Percutaneous Approach (ICD-10-PCS; principal; 2024-05-06)
PROC: 3E033GC Introduction of Other Therapeutic Substance into Peripheral Vein, Percutaneous Approach (ICD-10-PCS; 2024-05-06)
PROC: 3E0333Z Introduction of Anti-inflammatory into Peripheral Vein, Percutaneous Approach (ICD-10-PCS; 2024-05-06)
PROC: 3E033NZ Introduction of Analgesics, Hypnotics, Sedatives into Peripheral Vein, Percutaneous Approach (ICD-10-PCS; 2024-05-06)
DX: B85.2 Pediculosis, unspecified (principal); F11.20 Opioid dependence, uncomplicated; Z88.0 Allergy status to penicillin; F10.129 Alcohol abuse with intoxication, unspecified; F19.10 Other psychoactive substance abuse, uncomplicated; R00.0 Tachycardia, unspecified; Z86.59 Personal history of other mental and behavioral disorders; E72.20 Disorder of urea cycle metabolism, unspecified; Z72.0 Tobacco use
CPT/HCPCS: 36415; 80048; 80053; 80307; 82140; 83690; 83735; 83880; 84100; 84484; 85025; 85610; 85730; 86850; 86900; 86901; 93005; 93010; 96365; 96367; 96375; 99285-25; G0378